=== PATIENT | female | born 1975 | race Caucasian/White ===

== ENCOUNTER 2018-05-10 18:36 | Inpatient (IN) | payer OTHER ==
[~2018-05-10] VITALS: Ht 177.8 cm; Wt 86.2 kg
--- NOTE | 2018-05-10 19:36 | ED GENERAL ADULT ---
See Addendum History of Present Illness General Chief Complaint: ETOH/Drug Related Complaint Stated Complaint: SENT BY [facility] FOR ETOH DETOX Source: patient Exam Limitations: no limitations Vital Signs & Intake/Output Vital Signs & Intake/Output Vital Signs Date Time Temp Pulse Resp B/P B/P Pulse O2 O2 Flow FiO2 Mean Ox Delivery Rate 05/10 1918 98.4 98 18 133/85 96 Room Air Allergies Coded Allergies: No Known Allergies (05/10/18) Triage Note: RECEIVED 43 YO FEMALE SENT BY [facility] FOR DETOX. PT LAST DRANK ETOH 5 PM TODAY, APPROX 500 ML MIXED VODKA. PT REPORTS POSITIVE WITHDRAWL SEIZURES AND TREMORS. Triage Nurses Notes Reviewed? yes Onset: Gradual Duration: months Timing: recent history Severity: severe LMP (ages 10-50): unknown : No Patient currently breastfeeds: No HPI: 05/10/18 43-year-old female presents to the emergency department for medical clearance for [facility]. She says that she drinks alcohol a liter of vodka daily for the past several weeks. She does have a history of alcohol withdrawal seizures. She denies any drug use. She does admit to depression but denies suicidal ideation. Past History Travel History Traveled to [place] past 21 day No Medical History Any Pertinent Medical History? see below for history Neurological: NONE, seizure (etoh withdrawal) EENT: NONE Cardiovascular: NONE Respiratory: NONE Gastrointestinal: NONE Hepatic: NONE Renal: NONE Musculoskeletal: NONE Psychiatric: anxiety, depression Endocrine: NONE Blood Disorders: NONE Cancer(s): NONE Surgical History Surgical History: none (thyloma removal pediatric), appendectomy (thyoma removal pedi) Psychosocial History What is your primary language Finnish Tobacco Use: Never used ETOH Use: heavy use, alcoholic Illicit Drug Use: denies illicit drug use Family History Hx Contributory? No Review of Systems Review of Systems Constitutional: Reports: see HPI. EENTM: Reports: no symptoms. Respiratory: Reports: no symptoms. Cardiovascular: Reports: no symptoms. Denies: chest pain, edema. GI: Reports: no symptoms. Denies: abdominal pain, nausea, vomiting. Genitourinary: Reports: no symptoms. Musculoskeletal: Reports: no symptoms. Skin: Reports: no symptoms. Neurological/Psychological: Reports: anxiety, depressed, emotional problems. Denies: headache, numbness, tremors. Hematologic/Endocrine: Reports: no symptoms. Immunologic/Allergic: Reports: no symptoms. Physical Exam Physical Exam General Appearance: well developed/nourished, no apparent distress, alert, awake , anxious, moderate distress Head: atraumatic, normal appearance Eyes: Bilateral: normal appearance, PERRL, EOMI. Ears, Nose, Throat: normal pharynx, normal ENT inspection, hearing grossly normal Neck: normal inspection, supple, full range of motion Respiratory: normal breath sounds, no respiratory distress Cardiovascular: regular rate/rhythm Peripheral Pulses: 4+ radial (R), 4+ radial (L) Gastrointestinal: soft, non-tender Back: normal inspection, normal range of motion Extremities: normal inspection, normal capillary refill, normal range of motion Neurologic/Psych: no motor/sensory deficits, awake, alert, oriented x 3 Skin: intact, normal color, warm/dry Core Measures ACS in differential dx? No CVA/TIA Diagnosis: No Sepsis Present: No Sepsis Focused Exam Completed? No Progress Differential Diagnoses I considered the following diagnoses in my evaluation of the patient: [Etoh intoxication, impending dt's, withdrawal seizure] Plan of Care: Orders Procedure Date/time Status CIWA 05/10 1905 Active URINE DRUGS OF ABUSE 05/10 1905 Complete ETHANOL 05/10 1905 Complete COMPREHENSIVE METABOLIC PANEL 05/10 1905 Complete CBC WITHOUT DIFFERENTIAL 05/10 1905 Complete Current Medications Sig/Fareed Start time Last Medication Dose Stop Time Status Admin Aripiprazole 5 MG DAILY 05/11 0900 UNVr (Abilify) Sertraline HCl 200 MG DAILY 05/11 0900 UNVr (Zoloft) Gabapentin 600 MG TID 05/10 2145 UNVr (Neurontin) Nicotine 14 MG DAILY 05/10 2045 UNVr (Nicotine Cq) Laboratory Tests 05/10/182039: Urine Opiates Screen < 100, Methadone Screen < 40, Barbiturate Screen < 60, Ur Phencyclidine Scrn < 6.00, Amphetamines Screen < 100, U Benzodiazepines Scrn 188 , Urine Cocaine Screen < 50, Urine Cannabis Screen < 5.00 05/10/181944: Anion Gap 15, Estimated GFR > 60, BUN/Creatinine Ratio 4.0 L, Glucose 112 H, Calcium 8.9, Total Bilirubin 1.6 H, AST 235 H, ALT 112 H, Alkaline Phosphatase 329 H, Total Protein 7.2, Albumin 3.9, Globulin 3.3, Albumin/ Globulin Ratio 1.2, CBC w Diff NO MAN DIFF REQ, RBC 4.37, MCV 103.5 H, MCH 35.2 H, MCHC 34.0, RDW 14.3, MPV 7.6, Gran % 66.7, Lymphocytes % 26.3, Monocytes % 5.7, Eosinophils % 0.8, Basophils % 0.5, Absolute Granulocytes 2.6, Absolute Lymphocytes 1.0 L, Absolute Monocytes 0.2, Absolute Eosinophils 0, Absolute Basophils 0, Serum Alcohol 265.0 Initial ED EKG: none Departure Departure Disposition: STILL A PATIENT Condition: Stable Clinical Impression Primary Impression: EtOH dependence Referrals: Patient Has No Primary Care Dr (PCP/Family) Departure Forms: Customer Survey General Discharge Information Critical Care Note Critical Care Note Critical Care Time: non-applicable
[2018-05-10 19:58] LABS: ABSOLUTE BASOPHIL COUNT 0 /CUMM (0.0-0.2); ABSOLUTE EOSINOPHIL COUNT 0 /CUMM (0.0-0.7); ABSOLUTE GRANULOCYTE CT 2.6 /CUMM (1.4-6.5); ABSOLUTE MONOCYTE COUNT 0.2 /CUMM (0.10-0.60); BASOPHIL % 0.5 % (0.0-2.0); EOSINOPHIL % 0.8 % (0-5); GRANULOCYTE % 66.7 % (42.2-75.2); HEMATOCRIT 45.2 % (37-47); MEAN CORPUSCULAR HGB 35.2 PG (27.0-31.0); MEAN CORPUSCULAR VOLUME 103.5 FL (81.0-99.0); MEAN PLATELET VOLUME 7.6 FL (7.4-10.4); PLATELET COUNT 81 /CUMM (130-400); RBC DISTRIBUTION WIDTH 14.3 % (11.5-14.5); RED BLOOD CELL CT 4.37 /CUMM (4.20-5.40); WHITE BLOOD CELL COUNT 3.9 /CUMM (4.8-10.8)
[2018-05-11] VITALS (8 sets, daily range): BP systolic 121–167; BP diastolic 62–90
--- NOTE | 2018-05-11 05:16 | History & Physical ---
Parvez Bonds MD 05/11/18 0516: General Information and HPI MD Statement: I have seen and personally examined TAO DAY and documented this H&P. The patient is a 43 year old F who presented with a patient stated chief complaint of [alcohol withdrawal]. Source of Information: patient Exam Limitations: no limitations History of Present Illness: Patient is a 43-year-old female with a PMH significant for anxiety, depression, alcohol use disorder with a history of alcohol withdrawal seizures last occurring in August 2012, who was sent in by [facility] for alcohol detoxification. Patient reports her last drink was 05/10/18 at approximately 5 PM. She drinks 1 L of vodka per day which she has done for approximately 1 year , she began drinking heavily again after one of her sons suffered a traumatic injury. Patient currently endorses anxiety and fear of possible seizures, she denies any other symptoms currently other than tremulousness. She denies any audiovisual hallucinations and denies any suicidal or homicidal ideation. Allergies/Medications Allergies: Coded Allergies: No Known Allergies (05/10/18) Past History Travel History Traveled to [place] past 21 day No Medical History Neurological: seizure (etoh withdrawal) EENT: NONE Cardiovascular: NONE Respiratory: NONE Gastrointestinal: NONE Hepatic: NONE Renal: NONE Musculoskeletal: NONE Psychiatric: anxiety, depression Endocrine: NONE Blood Disorders: NONE Cancer(s): NONE Surgical History Surgical History: appendectomy (thymoma removal pedi) Past Family/Social History Family History Relations & Conditions if any MOTHER FH: alcoholism FH: myocardial infarction, Onset: 60+. FATHER FH: alcoholism Psychosocial History Where do you live? Home Who Do You Live With? spouse, child Services at Home: None Primary Language: Mozambican Smoking Status: Current Everyday Smoker (/ ppd for 5 years) ETOH Use: heavy use, alcoholic Illicit Drug Use: denies illicit drug use Functional Ability ADLs Independent: dressing, eating, toileting, bathing. Ambulation: independent IADLs Independent: shopping, housework, finances, food prep, telephone, transportation , medication admin. Review of Systems Review of Systems Constitutional: Denies: chills, fever, weakness. EENTM: Denies: blurred vision, double vision, visual changes. Cardiovascular: Denies: chest pain, palpitations. Respiratory: Denies: cough, short of breath. GI: Denies: abdominal pain, melena, nausea, vomiting. Genitourinary: Denies: dysuria, frequency, hematuria. Musculoskeletal: Reports: no symptoms. Skin: Reports: no symptoms. Exam & Diagnostic Data Last 24 Hrs of Vital Signs/I&O Vital Signs Date Time Temp Pulse Resp B/P B/P Pulse O2 O2 Flow FiO2 Mean Ox Delivery Rate 05/11 0514 98.4 99 20 167/87 96 Room Air 05/11 0415 98.5 93 18 158/89 05/11 0415 98.5 93 18 158/89 97 Room Air 05/11 0347 98.8 05/11 0321 98.8 100 18 159/96 96 Room Air 05/11 0124 99.6 99 18 143/80 96 Room Air 05/10 1918 98.4 98 18 133/85 96 Room Air Intake & Output 05/11 0800 05/11 0000 05/10 1600 Intake Total 0 Output Total Balance 0 Intake, Oral 0 Patient 190 lb Weight Weight Estimated Measurement Method Physical Exam General Appearance Alert, Oriented X3, Cooperative, No Acute Distress Skin Temp/Moisture Exam: Warm/Dry Sepsis Skin Exam (color): Normal for Ethnicity Cardiovascular Regular Rate, Normal S1, Normal S2 Lungs Clear to Auscultation, Normal Air Movement Abdomen Normal Bowel Sounds, Soft, No Tenderness Neurological Normal Speech, Strength at 5/5 X4 Ext, Normal Tone, Sensation Intact, Cranial Nerves 3-12 NL, tremulous Last 24 Hrs of Labs/Vishal: Laboratory Tests 05/10/182039: Urine Opiates Screen < 100, Methadone Screen < 40, Barbiturate Screen < 60, Ur Phencyclidine Scrn < 6.00, Amphetamines Screen < 100, U Benzodiazepines Scrn 188 , Urine Cocaine Screen < 50, Urine Cannabis Screen < 5.00 05/10/181944: Anion Gap 15, Estimated GFR > 60, BUN/Creatinine Ratio 4.0 L, Glucose 112 H, Calcium 8.9, Total Bilirubin 1.6 H, AST 235 H, ALT 112 H, Alkaline Phosphatase 329 H, Total Protein 7.2, Albumin 3.9, Globulin 3.3, Albumin/ Globulin Ratio 1.2, CBC w Diff NO MAN DIFF REQ, RBC 4.37, MCV 103.5 H, MCH 35.2 H, MCHC 34.0, RDW 14.3, MPV 7.6, Gran % 66.7, Lymphocytes % 26.3, Monocytes % 5.7, Eosinophils % 0.8, Basophils % 0.5, Absolute Granulocytes 2.6, Absolute Lymphocytes 1.0 L, Absolute Monocytes 0.2, Absolute Eosinophils 0, Absolute Basophils 0, Serum Alcohol 265.0 Assessment/Plan Assessment: Patient is a 43-year-old female with a PMH significant for anxiety, depression, alcohol use disorder with a history of alcohol withdrawal seizures last occurring in August 2012, who was sent in by [facility] for alcohol detoxification. Patient reports her last drink was 05/10/18 at approximately 5 PM. She drinks 1 L of vodka per day. Vital signs on presentation: T 98.4, P 98, RR 18, BP 133/85, pulse ox 96% on room air Labs: WBC 3.9, H/H 15.4/45.2, MCV 103.5, platelets 81, AST 235, ALT 112, alk phos 329, serum alcohol 265 Problem list #Alcohol use disorder, with alcohol withdrawal and a history of alcohol withdrawal seizures #Transaminitis secondary to alcohol use #Thrombocytopenia #Chronic medical problems including anxiety and depression Plan -Admit to general medicine floor - IV Ativan per CIWA score -Scheduled Ativan p.o. 2 mg every 8 hours -Social work consult for coordination with discharge to [facility] when stable -Repeat CBC in a.m. -Continue home medications including gabapentin, aripiprazole, sertraline -Smoking cessation counseling, nicotine patch Diet: Regular diet DVT prophylaxis: ALPS, will hold pharmacologic DVT ppx given thrombocytopenia CODE STATUS: Full code As Ranked By This Provider Problem List: 1. EtOH dependence 2. Alcohol withdrawal Core Measures/Misc (08/07) Acute Coronary Syndrome ACS Diagnosis: No Congestive Heart Failure Congestive Heart Failure Diagnosis No Cerebrovascular Accident CVA/TIA Diagnosis: No VTE (View Protocol) VTE Risk Factors Age>40 No Mechanical VTE Prophylaxis d/t N/A MechProphylax Ordered No VTE Pharm Prophylaxis d/t Platelets below ref range Sepsis (View protocol) Sepsis Present: No If YES complete Sepsis Event Note If YES complete Sepsis Event Note Leticia Almanza 05/11/18 0529: Core Measures/Misc (08/07) Sepsis (View protocol) If YES complete Sepsis Event Note If YES complete Sepsis Event Note Resident Review Statement Resident Statement: discussed with director internal communications, agreed with director internal communications Other Findings: Patient is 43 year old female with PMH of mutiple etoh detox admissions at [facility], hx of etoh withdrawal seizures in 2011 and anxiety came with a request of etoh detox. She states that she has been drinking 1 liter of vodka since past May 2017. The accident of her son prompted her to start drinking. She denies any suicidal or homicidial ideations and her last drink was on 05/10 at 5 pm. Patient follows up with her own psychiatrist who has prescribed her sertraline and aripiprazole. ROS negative. Labs and vitals as above. Plan: Will admit the patient on General medicine floor, and start 2mg ativan PO RTC and 1 mg q1 prn per CIWA protocol, Neuro checks q 4. Will continue her gabapentin, sertraline and aripiprazole. Will just monitor blood pressure at this point. for transaminities, will recheck lfts in am and obtain RUQ usg. Patient does not report of any abdominal pain at this point. will monitor closely. Patient has thrombocytopenia with a platelet count of 81, will continue to monitor. dvt ppx ALPS due to thrombocytopenia patient is full code. Jose David Khan MD 05/11/18 2335: General Information and HPI Allergies/Medications Home Med list Aripiprazole 5 MG TABLET 1 TAB PO DAILY MENTAL HEALTH (Reported) Gabapentin 600 MG TABLET 2 TAB PO TID MENTAL HEALTH (Reported) Multivitamin (Daily Value) 1 EACH TABLET 1 TAB PO DAILY VITAMIN SUPPORT ( Reported) Sertraline HCl 100 MG TABLET 2 TAB PO DAILY MENTAL HEALTH (Reported) Core Measures/Misc (08/07) Sepsis (View protocol) If YES complete Sepsis Event Note If YES complete Sepsis Event Note Attending MD Review Statement Attending Statement Attending MD Statement: examined this patient, discuss w/resident/PA/DETASSELING CREW SUPERVISOR, agreed w/resident/PA/DETASSELING CREW SUPERVISOR, reviewed EMR data (avail) Attending Assessment/Plan: 43F PMH EtOH abuse with history of withdrawal seizure, was set to go to [facility] from ER but started withdrawing, CIWA 11 in ER, some agitation, given Ativan, will require treatment for withdrawal. Ativan taper and PRN, trend LFTs which were elevated on arrival, check coags, monitor electrolytes, DVT PPx.
[2018-05-11 05:56] LABS: ABSOLUTE BASOPHIL COUNT 0 /CUMM (0.0-0.2); ABSOLUTE EOSINOPHIL COUNT 0 /CUMM (0.0-0.7); ABSOLUTE GRANULOCYTE CT 1.4 /CUMM (1.4-6.5); ABSOLUTE LYMPH COUNT 0.5 /CUMM (1.2-3.4); ABSOLUTE MONOCYTE COUNT 0.2 /CUMM (0.10-0.60); BASOPHIL % 0.7 % (0.0-2.0); EOSINOPHIL % 0.8 % (0-5); GRANULOCYTE % 65.9 % (42.2-75.2); MEAN CORPUSCULAR HGB 35.7 PG (27.0-31.0); MEAN CORPUSCULAR HGB CONC 34.7 G/DL (33.0-37.0); MEAN CORPUSCULAR VOLUME 102.7 FL (81.0-99.0); MEAN PLATELET VOLUME 7.6 FL (7.4-10.4); RBC DISTRIBUTION WIDTH 13.9 % (11.5-14.5); RED BLOOD CELL CT 3.63 /CUMM (4.20-5.40)
[2018-05-11 06:07] LABS: HEMATOCRIT 37.3 % (37-47)
[2018-05-11 06:12] LABS: WHITE BLOOD CELL COUNT 2.8 /CUMM (4.8-10.8)
[2018-05-11 06:20] LABS: PLATELET COUNT 47 /CUMM (130-400)
[2018-05-11] MEDS ORDERED: SERTRALINE HCL100 MG PO (08:22)
[2018-05-11] MEDS ORDERED: GABAPENTIN600 M1 PO (08:22)
[2018-05-11] MEDS ORDERED: ARIPIPRAZOLE5 M1 PO (08:22)
[2018-05-11] MEDS ORDERED: DAILY VALUE1 EACH PO (08:23)
[2018-05-11 13:17] LABS: PT 12.9 SEC (9.4-12.5); PTT 31 SEC (25-37)
--- NOTE | 2018-05-11 13:30 | PN- Att Addend ---
Attending Addendum Attending Brief Note Patient seen and examined. Lying on stretcher not in acute distress. Denies nausea vomiting. Denies abdominal pain. She reports seeking admission to [facility] program. She was told she required hospitalization prior to admission there. She does carry a history of alcohol-related seizures. CIWA score has been elevated in the emergency room when she has been receiving as needed doses of Ativan. Vital Signs Date Time Temp Pulse Resp B/P B/P Pulse O2 O2 Flow FiO2 Mean Ox Delivery Rate 05/11 1230 98.2 94 18 129/84 05/11 1212 98.2 94 18 129/73 98 Room Air 05/11 1030 98.6 96 16 128/81 96 Room Air 05/11 1015 96.0 96 20 121/81 05/11 0745 98.4 93 18 124/62 05/11 0743 98.4 93 18 124/62 96 Room Air 05/11 0515 98.4 99 20 167/87 05/11 0514 98.4 99 20 167/87 96 Room Air 05/11 0415 98.5 93 18 158/89 05/11 0415 98.5 93 18 158/89 97 Room Air 05/11 0347 98.8 05/11 0321 98.8 100 18 159/96 96 Room Air 05/11 0124 99.6 99 18 143/80 96 Room Air 05/10 1918 98.4 98 18 133/85 96 Room Air General appearance: Well-developed and not in any acute distress. HEENT: Anicteric, no pallor, pupils equal and reactive. Neck: Supple with no jugular venous distention. Heart: S1-S2 regular with no audible murmur. Lungs: Adequate and symmetric air entry bilaterally with no added sounds. Abdomen: Nondistended with normal bowel sounds. Soft, nontender with no palpable masses. Extremities: No pedal edema. No cyanosis. Skin: Intact Laboratory Tests 05/11/18 1254: PT 12.9 H, INR 1.18, APTT 31 05/11/18 0550: Anion Gap 11, Estimated GFR > 60, BUN/Creatinine Ratio 4.0 L, Direct Bilirubin 1.1 H, CBC w Diff NO MAN DIFF REQ, RBC 3.63 L, MCV 102.7 H, MCH 35.7 H, MCHC 34.7, RDW 13.9, MPV 7.6, Gran % 65.9, Lymphocytes % 24.6, Monocytes % 8.0, Eosinophils % 0.8, Basophils % 0.7, Absolute Granulocytes 1.4, Absolute Lymphocytes 0.5 L, Absolute Monocytes 0.2, Absolute Eosinophils 0, Absolute Basophils 0 05/10/182039: Urine Opiates Screen < 100, Methadone Screen < 40, Barbiturate Screen < 60, Ur Phencyclidine Scrn < 6.00, Amphetamines Screen < 100, U Benzodiazepines Scrn 188 , Urine Cocaine Screen < 50, Urine Cannabis Screen < 5.00 05/10/181944: Anion Gap 15, Estimated GFR > 60, BUN/Creatinine Ratio 4.0 L, Glucose 112 H, Calcium 8.9, Total Bilirubin 1.6 H, AST 235 H, ALT 112 H, Alkaline Phosphatase 329 H, Total Protein 7.2, Albumin 3.9, Globulin 3.3, Albumin/ Globulin Ratio 1.2, CBC w Diff NO MAN DIFF REQ, RBC 4.37, MCV 103.5 H, MCH 35.2 H, MCHC 34.0, RDW 14.3, MPV 7.6, Gran % 66.7, Lymphocytes % 26.3, Monocytes % 5.7, Eosinophils % 0.8, Basophils % 0.5, Absolute Granulocytes 2.6, Absolute Lymphocytes 1.0 L, Absolute Monocytes 0.2, Absolute Eosinophils 0, Absolute Basophils 0, Serum Alcohol 265.0 Problems: 1. Alcohol withdrawal syndrome 2. Cirrhosis 3. Leukopenia, macrocytosis and thrombocytopenia; secondary to above 4. Transaminitis cholestatic pattern Plan: -Since arriving in the emergency room her CIWA score has been persistently documented high with values of 12, 10, 15, 11. She has occasional low values of 4 and 5. Would recommend administering standing dose of Ativan more frequently. Administer Ativan 2 mg orally every 4 hours for now. Continue with as needed Ativan per elevated CIWA score. Will wean down based on response to therapy. -Follow-up right upper quadrant sonogram. -Thrombocytopenia precautions. -Follow-up with the social work service regarding transferring to [facility] once her benzodiazepine therapy has been weaned down appropriately. -Check folic acid and B12 levels.
--- NOTE | 2018-05-11 14:44 | ULTRASOUND REPORT ---
EXAMINATION: US ABDOMEN LIMITED CLINICAL INFORMATION: Right upper quadrant ultrasound for cholecystitis. Transaminitis.. COMPARISON: None TECHNIQUE: Real-time imaging of the right upper quadrant abdominal viscera. FINDINGS: PANCREAS: Portions of the pancreatic body are visualized and appear unremarkable. Remainder of the pancreas is obscured by overlying bowel gas. LIVER: The liver is enlarged, measuring 20.2 cm longitudinally. Diffusely increased echogenicity is seen, consistent with hepatic steatosis. No focal cystic or solid mass or intrahepatic ductal dilatation is seen. With color Doppler imaging, normal hepatopetal flow is seen within the main portal vein. GALLBLADDER: Normal. The gallbladder is physiologically distended without evidence of stones, sludge, polyps, wall thickening or pericholecystic fluid. COMMON BILE DUCT: Normal in caliber measuring 0.4 cm in diameter. RIGHT KIDNEY: Normal. No hydronephrosis. No renal calculi or focal parenchymal lesions. The kidney measures 12.3 cm in maximum dimension. FREE FLUID: None. IMPRESSION: 1. Enlarged liver with diffusely increased echogenicity, consistent with hepatic steatosis. 2. No focal liver mass. 3. Gallbladder normal with no evidence of cholecystitis or biliary obstruction. 4. Incomplete view of the pancreas.
[2018-05-12] VITALS (10 sets, daily range): BP systolic 108–122; BP diastolic 60–80
--- NOTE | 2018-05-12 07:07 | PN- Housestaff ---
See Addendum Subjective Follow-up For: alcohol use disorder alcohol dependence and withdrawal Subjective: patient complained of a headache that was relieved by tylenol and feels like her withdrawal symptoms are overall much better and well controlled, but she "knows when her next dose is due" tmax 100.3 overnight patient complained of some dysuria for the past day Review of Systems Constitutional: Reports: see HPI. Objective Last 24 Hrs of Vital Signs/I&O Vital Signs Date Time Temp Pulse Resp B/P B/P Pulse O2 O2 Flow FiO2 Mean Ox Delivery Rate 05/12 0726 97.5 88 20 112/68 96 Room Air 05/12 0400 100.3 96 20 110/60 05/12 0200 100.3 96 20 110/60 05/12 0200 100.3 96 20 110/60 97 Room Air 05/12 0000 98.3 93 20 122/70 05/11 2155 98.3 93 20 122/70 98 Room Air 05/11 1824 98.1 82 20 130/80 99 Room Air 05/11 1448 98.0 98 20 145/90 100 Room Air 05/11 1230 98.2 94 18 129/84 05/11 1212 98.2 94 18 129/73 98 Room Air 05/11 1030 98.6 96 16 128/81 96 Room Air 05/11 1015 96.0 96 20 121/81 Intake & Output 05/12 1600 05/12 0800 05/12 0000 Intake Total 240 700 Output Total Balance 240 700 Intake, Oral 240 700 Physical Exam General Appearance: Alert, Oriented X3, Cooperative, No Acute Distress Cardiovascular: Regular Rate, Normal S1, Normal S2, No Murmurs Lungs: Clear to Auscultation, Normal Air Movement Abdomen: Normal Bowel Sounds, Soft, No Tenderness, No Masses Extremities: No Clubbing, No Cyanosis, No Edema, Normal Pulses Current Medications: Current Medications Sig/Fareed Start time Last Medication Dose Route Stop Time Status Admin Acetaminophen 500 MG Q6P PRN 05/11 1045 AC 05/12 PO 0219 Aripiprazole 5 MG DAILY 05/11 1456 DC PO Aripiprazole 5 MG DAILY 05/11 0900 AC 05/11 PO 0855 Folic Acid 1 MG DAILY 05/11 0900 AC 05/11 PO 0855 Gabapentin 1,200 MG BID 05/11 1455 AC 05/11 PO 2123 Gabapentin 0 .STK-MED ONE 05/11 1332 DC PO Gabapentin 600 MG TID 05/10 2145 DC 05/11 PO 1328 Lorazepam 2 MG Q6 05/12 1200 AC PO Lorazepam 2 MG Q4 05/11 1800 DC 05/12 PO 0535 Lorazepam 0 .STK-MED ONE 05/11 1332 DC PO Lorazepam 0 .STK-MED ONE 05/11 1055 DC .ROUTE Lorazepam 2 MG Q8 05/11 0900 DC 05/11 PO 1328 Lorazepam 0 .STK-MED ONE 05/11 0842 DC PO Lorazepam 0 Q1P PRN 05/11 0500 AC 05/11 IV 1916 Multivitamins 1 TAB DAILY 05/11 0900 AC 05/11 PO 0855 Nicotine 14 MG DAILY 05/10 2045 AC 05/11 TOP 0855 Sertraline HCl 200 MG DAILY 05/11 1455 AC PO Sertraline HCl 200 MG DAILY 05/11 0900 DC 05/11 PO 0855 Thiamine HCl 50 MG DAILY 05/11 0900 AC 05/11 PO 0855 Last 24 Hrs of Lab/Vishal Results Last 24 Hrs of Labs/Mics: Laboratory Tests 05/12/18 0740: Sodium Pending, Potassium Pending, Chloride Pending, Carbon Dioxide Pending, Anion Gap Pending, BUN Pending, Creatinine Pending, BUN/Creatinine Ratio Pending , Phosphorus Pending, Magnesium Pending, Total Bilirubin Pending, Direct Bilirubin Pending, AST Pending, ALT Pending, Alkaline Phosphatase Pending, Total Protein Pending, Albumin Pending, CBC w Diff Pending, WBC Pending, RBC Pending, Hgb Pending, Hct Pending, MCV Pending, MCH Pending, MCHC Pending, RDW Pending, Plt Count Pending, MPV Pending 05/11/18 1254: PT 12.9 H, INR 1.18, APTT 31 Assessment/Plan Assessment: 43 year old female with a PMH significant for anxiety, depression, alcohol use disorder, withdrawal seizures last 08/2012 sent in by [facility] for alcohol detox. Last drink was 05/10/18 5 PM. EtOH dependence and withdrawal: Ativan 2mg q4h currently, decrease to q6h Ativan prn per [facility] protocol, 0-7 in the last 24 hours Long history of alcohol use disorder, relapse one year after ago after son's traumatic injury Continue multivitamin, thiamine, folate Abdominal ultrasound showed hepatic steatosis, no mass, normal gall bladder Thrombocytopenia and leukopenia likely secondary to EtOH, trend CBC Repleted magnesium and potassium Anxiety/depression: Continue abilify, zoloft, and gabapentin Low grade fever overnight: 100.3, given tylenol Check urinalysis and chest x-ray for temperature of 100.3 and leukopenia Continue nicotine patch Macrocytosis likely from EtOH, with normal range folate and B12, continue vitamin supplementation Regular diet DVT ppx-ALPS only-thrombocytopenia Full code Problem List: 1. EtOH dependence 2. Alcohol withdrawal Pain Ratin Pain Location: headache Pain Goal: Pain 4 or less Pain Plan: tylenol Tomorrow's Labs & Rationales: bep, cbc
[2018-05-12 08:10] LABS: ABSOLUTE BASOPHIL COUNT 0 /CUMM (0.0-0.2); ABSOLUTE EOSINOPHIL COUNT 0 /CUMM (0.0-0.7); ABSOLUTE GRANULOCYTE CT 1.4 /CUMM (1.4-6.5); ABSOLUTE LYMPH COUNT 0.5 /CUMM (1.2-3.4); ABSOLUTE MONOCYTE COUNT 0.1 /CUMM (0.10-0.60); BASOPHIL % 0.8 % (0.0-2.0); EOSINOPHIL % 1.3 % (0-5); GRANULOCYTE % 70.3 % (42.2-75.2); MEAN CORPUSCULAR HGB 35.8 PG (27.0-31.0); MEAN CORPUSCULAR HGB CONC 34.7 G/DL (33.0-37.0); MEAN CORPUSCULAR VOLUME 103.4 FL (81.0-99.0); MEAN PLATELET VOLUME 8.4 FL (7.4-10.4); RBC DISTRIBUTION WIDTH 14.1 % (11.5-14.5); RED BLOOD CELL CT 3.77 /CUMM (4.20-5.40); WHITE BLOOD CELL COUNT 2.1 /CUMM (4.8-10.8)
[2018-05-12 09:42] LABS: PLATELET COUNT 37 /CUMM (130-400)
--- NOTE | 2018-05-12 12:45 | RADIOLOGY REPORT ---
EXAMINATION: XR PORTABLE CHEST CLINICAL INFORMATION: Cough. Fever. COMPARISON: None TECHNIQUE: Portable frontal view of the chest was obtained. FINDINGS: The cardiomediastinal silhouette is within normal limits in size. Lungs bilaterally are symmetrically expanded. Linear subsegmental atelectasis is seen in the left lung base. Slight thickening of the central airways is seen with perihilar reticular prominence. No focal consolidation, effusion or pneumothorax is seen. Bony structures are unremarkable. IMPRESSION: 1. Findings are suggestive of reactive airways disease or bronchitis. No focal pneumonia. 2. Mild left basilar subsegmental atelectasis.
[2018-05-13] VITALS (10 sets, daily range): BP systolic 108–128; BP diastolic 65–75
--- NOTE | 2018-05-13 07:37 | PN- Housestaff ---
Jodi Schreiber 05/13/18 0724: Subjective Follow-up For: -alcohol detox Subjective: I have seen and examined the patient today morning, seems to be stable, does not offer any new complaint. Review of Systems Constitutional: Reports: see HPI. Objective Last 24 Hrs of Vital Signs/I&O Vital Signs Date Time Temp Pulse Resp B/P B/P Pulse O2 O2 Flow FiO2 Mean Ox Delivery Rate 05/13 0556 97.8 96 20 110/70 96 Room Air 05/13 0200 98.4 87 20 114/70 97 Room Air 05/12 2152 98.3 80 20 122/70 96 Room Air 05/12 1800 98.6 86 20 110/60 97 Room Air 05/12 1457 98.7 85 20 108/60 95 05/12 1400 98.7 85 20 108/60 05/12 1024 100.0 89 20 120/80 97 05/12 1000 100.0 89 20 120/80 05/12 0726 97.5 88 20 112/68 96 Room Air Intake & Output 05/13 0800 05/13 0000 05/12 1600 Intake Total 664 968 6273 Output Total 350 Balance 342 671 2323 Intake, Oral 006 604 6346 Output, Urine 350 Physical Exam General Appearance: Alert, Oriented X3 Skin: No Rashes, No Breakdown, No Significant Lesion HEENT: Atraumatic, PERRLA, EOMI Neck: Supple, No JVD Cardiovascular: Regular Rate, Normal S1, Normal S2, No Murmurs Lungs: Clear to Auscultation, Normal Air Movement Abdomen: Normal Bowel Sounds, Soft, No Tenderness Extremities: No Clubbing, No Cyanosis, No Edema, Normal Pulses Current Medications: Current Medications Sig/Fareed Start time Last Medication Dose Route Stop Time Status Admin Acetaminophen 500 MG Q6P PRN 05/11 1045 AC 05/12 PO 1744 Albuterol Sulfate 2 PUF BID 05/12 2100 AC INH Aripiprazole 5 MG DAILY 05/11 09 AC 05/12 PO 0837 Folic Acid 1 MG DAILY 05/11 0900 AC 05/12 PO 0837 Gabapentin 1,200 MG BID 05/11 1455 AC 05/12 PO 2026 Lorazepam 2 MG Q6 05/12 1200 AC 05/13 PO 0558 Lorazepam 2 MG Q4 05/11 1800 DC 05/12 PO 0535 Lorazepam 0 Q1P PRN 05/11 0500 AC 05/12 IV 2037 Magnesium Oxide 400 MG ONE ONE 05/12 1400 DC 05/12 PO 05/12 1401 1356 Magnesium Oxide 800 MG ONE ONE 05/12 0945 DC 05/12 PO 05/12 0946 1132 Multivitamins 1 TAB DAILY 05/11 0900 AC 05/12 PO 0837 Nicotine 14 MG DAILY 05/10 2045 05/12 TOP 0837 Patient Medication 1 ED ONE ONE 05/12 1030 DC Teaching ED 05/12 1031 Potassium Chloride 40 MEQ ONCE ONE 05/12 0945 DC 05/12 PO 05/12 0946 1133 Sertraline HCl 200 MG DAILY 05/11 1455 AC 05/12 PO 0836 Thiamine HCl 50 MG DAILY 05/11 0900 AC 05/12 PO 0837 Last 24 Hrs of Lab/Vishal Results Last 24 Hrs of Labs/Mics: Laboratory Tests 05/12/18 1144: Urinalysis LIGHT H, Urine Color YEL, Urine Clarity HAZY H, Urine pH 7.5, Ur Specific [place] 1.015, Urine Protein NEG, Urine Ketones NEG, Urine Nitrite NEG, Urine Bilirubin POS@ICTO H, Urine Urobilinogen 2.0 H, Ur Leukocyte Esterase SMALL H, Ur Microscopic SEDIMENT EXAMINED, Urine RBC 3-5, Urine WBC 5-10 H, Ur Epithelial Cells MOD H, Urine Bacteria MOD H, Urine Hemoglobin TRACE-INTACT, Urine Glucose NEG 05/12/18 0740: Anion Gap 8, Estimated GFR > 60, BUN/Creatinine Ratio 8.0, Phosphorus 3.8, Magnesium 1.3 L, Total Bilirubin 2.9 H, Direct Bilirubin 2.0 H, AST 189 H, ALT 87 H, Alkaline Phosphatase 287 H, Total Protein 6.0 L, Albumin 3.0 L, CBC w Diff NO MAN DIFF REQ, RBC 3.77 L, MCV 103.4 H, MCH 35.8 H, MCHC 34.7, RDW 14.1, MPV 8.4, Gran % 70.3, Lymphocytes % 22.0, Monocytes % 5.6, Eosinophils % 1.3, Basophils % 0.8, Absolute Granulocytes 1.4, Absolute Lymphocytes 0.5 L, Absolute Monocytes 0.1, Absolute Eosinophils 0, Absolute Basophils 0 Microbiology 05/12 1310 BLOOD: Blood Culture - RECD 05/12 1300 BLOOD: Blood Culture - RECD 05/12 1144 URINE ROUT: Urine Culture - RECD Lines/Diet/Fluids Restraints: none Assessment/Plan Assessment: Ms. Malik is a 43-year-old female with past medical history of anxiety, depression, alcohol use disorder, withdrawal seizure came in to [facility] for alcohol detoxification. Problem #1 alcohol dependence with withdrawal * Taper Ativan from 2 mg every 6-2 mg every 12. * CIWA overnight 3, 0, 0, 0 * Continue multivitamin, thiamine, folate. * Anticipated discharge tomorrow, patient wants to go back to [employer] tmrw, social work on board. * Abdominal ultrasound showed hepatic steatosis possibly secondary to alcoholism. * Continue to monitor BEP, repeat magnesium and potassium as indicated Problem #2 anxiety/depression * Continue Abilify, Zoloft, gabapentin Problem #3 low-grade fever 05/12. * No more fever spikes. * Chest x-ray did not show any findings of focal pneumonia. * UA showed 5-10 WBCs with mild leukocyte esterase, not very impressive for infection. * No growth on cultures, will continue to monitor. Problem #4 smoking cessation. * Continue nicotine patch. Regular diet. DVT prophylaxis with Aide. FC Problem List: 1. EtOH dependence 2. Alcohol withdrawal Pain Ratin Pain Location: .. Pain Goal: Remain pain free Pain Plan: .. Tomorrow's Labs & Rationales: .. Brandi SOUSA,Melquiades 05/13/18 1043: Attending MD Review Statement Attending Statement Attending MD Statement: examined this patient, discuss w/resident/PA/SENIOR ADMINISTRATIVE ASSOCIATE, agreed w/resident/PA/SENIOR ADMINISTRATIVE ASSOCIATE, reviewed EMR data (avail), discussed with nursing, discussed with case mgmt, amended to note Attending Assessment/Plan: Patient seen and examined. Resting comfortably not in any acute distress. CIWA score was not significantly elevated yesterday. Her score has been 0 so far today. He is not in any acute distress. She is alert and oriented 3. She has been afebrile. She reports her dysuria has resolved. Denies nausea vomiting or abdominal discomfort. Urine cultures currently growing gram-negative rods. Right upper quadrant sonogram showed hepatomegaly. No evidence of cholecystitis or biliary infection. Her leukopenia and thrombocytopenia are stable Recommendations: -Ativan has been decreased to 2 mg every 12 hours today. She has received 4 mg of Ativan so far earlier on today. Continue current dose of Ativan tomorrow. -If she remains clinically stable she may be discharged to [facility] tomorrow. -Urine culture is growing gram-negative rods. She did complain of dysuria earlier but this has improved. She also had low-grade fever earlier. Recommend treating patient with ciprofloxacin 500 mg orally twice daily for 5 days. -No need to repeat serum chemistry or CBC tomorrow
[2018-05-13 08:35] LABS: ABSOLUTE BASOPHIL COUNT 0 /CUMM (0.0-0.2); ABSOLUTE EOSINOPHIL COUNT 0 /CUMM (0.0-0.7); ABSOLUTE GRANULOCYTE CT 1.6 /CUMM (1.4-6.5); ABSOLUTE LYMPH COUNT 0.4 /CUMM (1.2-3.4); ABSOLUTE MONOCYTE COUNT 0.1 /CUMM (0.10-0.60); BASOPHIL % 0 % (0.0-2.0); EOSINOPHIL % 1.4 % (0-5); GRANULOCYTE % 72.7 % (42.2-75.2); HEMATOCRIT 41.5 % (37-47); MEAN CORPUSCULAR HGB 35.3 PG (27.0-31.0); MEAN CORPUSCULAR HGB CONC 34.2 G/DL (33.0-37.0); MEAN CORPUSCULAR VOLUME 103.3 FL (81.0-99.0); MEAN PLATELET VOLUME 8.4 FL (7.4-10.4); RBC DISTRIBUTION WIDTH 13.6 % (11.5-14.5); RED BLOOD CELL CT 4.02 /CUMM (4.20-5.40); WHITE BLOOD CELL COUNT 2.2 /CUMM (4.8-10.8)
[2018-05-13 10:40] LABS: PLATELET COUNT 41 /CUMM (130-400)
[2018-05-14] VITALS (8 sets, daily range): BP systolic 100–116; BP diastolic 60–84
--- NOTE | 2018-05-14 08:47 | PN- Housestaff ---
See Addendum Subjective Follow-up For: alcohol use disorder alcohol dependence and withdrawal Subjective: patient today, complained of some body aches patient does report that in the past she had detoxed at home and on arrival to [facility] was told she had rhabdomyolysis but denied any known seizures at that time afebrile overnight, on cipro for uti Review of Systems Constitutional: Reports: see HPI. Objective Last 24 Hrs of Vital Signs/I&O Vital Signs Date Time Temp Pulse Resp B/P B/P Pulse O2 O2 Flow FiO2 Mean Ox Delivery Rate 05/14 0900 97.0 93 18 112/80 95 Room Air 05/14 0547 98.4 94 20 100/60 94 Room Air 05/14 0158 98.7 97 20 110/60 94 Room Air 05/13 2219 98.6 96 18 128/70 96 05/13 1800 98.4 101 18 108/68 94 Room Air 05/13 1405 97.5 94 20 110/75 97 Room Air 05/13 1400 97.8 96 20 110/70 05/13 1200 97.8 96 20 110/70 05/13 1107 97.5 92 20 110/65 95 Room Air 05/13 1000 97.8 96 20 110/70 Intake & Output 05/14 1600 05/14 0800 05/14 0000 Intake Total 250 700 Output Total Balance 250 700 Intake, Oral 250 700 Physical Exam General Appearance: Alert, Oriented X3, Cooperative, minimal tremor Cardiovascular: Regular Rate, Normal S1, Normal S2, No Murmurs Lungs: Clear to Auscultation, Normal Air Movement Abdomen: Normal Bowel Sounds, Soft, No Tenderness, No Masses Extremities: No Clubbing, No Cyanosis, No Edema, Normal Pulses Current Medications: Current Medications Sig/Fareed Start time Last Medication Dose Route Stop Time Status Admin Acetaminophen 650 MG .STK-MED ONE 05/13 1541 DC PO 05/13 1542 Acetaminophen 500 MG Q6P PRN 05/11 1045 AC 05/14 PO 0043 Albuterol Sulfate 2 PUF BID 05/12 2100 AC INH Aripiprazole 5 MG DAILY 05/11 0900 AC 05/13 PO 0858 Ciprofloxacin 500 MG BID 05/13 1230 AC 05/13 PO 05/17 1229 2029 Folic Acid 1 MG DAILY 05/11 09 AC 05/13 PO 0858 Gabapentin 1,200 MG BID 05/11 1455 AC 05/13 PO 2028 Lorazepam 1 MG Q12 05/14 2100 UNVr PO Lorazepam 2 MG Q12 05/13 0900 DC 05/13 PO 2028 Lorazepam 0 Q1P PRN 05/11 0500 AC 05/13 IV 1807 Magnesium Oxide 400 MG DAILY 05/15 09 UNVr PO Magnesium Oxide 800 MG ONE ONE 05/14 0930 UNVr PO 05/14 0931 Magnesium Oxide 800 MG ONE ONE 05/14 930 UNVr PO 05/14 0931 Multivitamins 1 TAB DAILY 05/11 09 AC 05/13 PO 0859 Nicotine 14 MG DAILY 05/10 2045 AC 05/13 TOP 0858 Sertraline HCl 200 MG DAILY 05/11 1455 AC 05/13 PO 0859 Thiamine HCl 50 MG DAILY 05/11 09 AC 05/13 PO 0859 Assessment/Plan Assessment: 43 year old female with a PMH significant for anxiety, depression, alcohol use disorder, withdrawal seizures last 08/2012 sent in by [facility] for alcohol detox. Last drink was 05/10/18 5 PM. EtOH dependence and withdrawal: Ativan 2mg q12h currently, decrease to 1mg q12 Ativan prn per CIWA protocol, 0-4, with one documented CIWA of 10 in the last 24 hours Long history of alcohol use disorder, relapse one year after ago after son's traumatic injury Continue multivitamin, thiamine, folate Abdominal ultrasound negative for biliary disease, hepatic steatosis Thrombocytopenia and leukopenia likely secondary to EtOH, trend CBC Repleted magnesium Check BEP with magnesium, LFTs and CK for h/o of rhabdomyolysis and body aches Anxiety/depression: Continue abilify, zoloft, and gabapentin Low grade fever with dysuria: Afebrile On ciprofloxacin for urinary tract infection, culture 80,000 colonies GNR, speciation pending Will give 3 days of antibiotics Continue nicotine patch Regular diet DVT ppx-ALPS only-thrombocytopenia Full code Plan to discharge to [facility] tmrw after completing benzodiazepine taper Problem List: 1. EtOH dependence 2. Alcohol withdrawal Pain Ratin Pain Location: whole body myalgia Pain Goal: Pain 4 or less Pain Plan: prn Tomorrow's Labs & Rationales: bep, lft, mag
--- NOTE | 2018-05-14 14:06 | PN- Student ---
Subjective Subjective: Student H&P Source: patient and records review Reliability: good HPI: Helena Cummings is a 43 YOF with a PMH significant for anxiety, depression, and ethanol detoxes in 2011 and 2013 who was sent in to the ER by Jose Angel for ethanol detox. She states that she has been drinking 1L of vodka per day for the past year. Her last period of sobriety ended when her son suffered a cervical neck fracture and experienced a difficult recovery. Her last drink was on at 5pm. In the ER, patient was experiencing anxiety and tremulousness, and she stated that she was afraid of having a seizure like she experienced during her 2012 detox. She denied any hallucinations or suicidal ideation. Hospital Course: Mrs. Cummings was initially treated with IV ativan per CIWA protocol and scheduled ativan of 2mg Q8h. Her Ativan has since been tapered to 2mg Q12h. Her most recent CIWA scores have ranged between 0-4 with some points scored for anxiety, which may be partly her baseline. Initial lab values revealed a transaminitis, macrocytosis, and thrombocytopenia. Over the next days she also developed a leukopenia. Treatment included repletion of folate, B vitamins, and magnesium. She was also found to have a UTI, which was treated with Ciprofloxacin. On the she developed a cough and fever. X-ray showed evidence of reactive airway disease, which was treated with albuterol. PMH: Anxiety, Depression, Thymoma (age 1), Tonsillectomy (age 8) She has never received a blood transfusion She has received all of her childhood vaccinations, as well as HepA and HepB vaccines. She regularly saw Dr. Kevin Gutierrez in [place] until 1 year ago. She does not currently have a PCP, but would like to establish herself with one. Home Medications: Aripiprazole Gabapentin Sertraline HCl FMH: Father - alcoholism Mother - alcoholism, heart disease (unknown etiology, > age 60) SH: Mrs. Cummings lives at home with her and three sons - ages 18, 16, and 16. 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 She does not currently work, but expresses interest in returning to her career after her children are out of the house. Her works in [employer] for [employer]. Her eldest son is about to enter college and wishes to study [employer] engineering. Her twin sons are in highschool and doing well. [place], but has an extensive travel history. Starting as a child, she took multiple trips to [place] with her father, who was an gis consultant there. She has also traveled [place], [place], and most recently last year to [place] and [place]. She has been an on again off again alcoholic since 2011, with periods of remission lasting up to three years. She has also been an active smoker for the past 5 years at a rate of 1/4 ppd. She has never used illicit drugs, IV or otherwise. She is currently sexually active with her , and both of them are monogamous. She denies ever feeling unsafe at home. Objective Objective: On physical exam, the patient is sitting comfortably in bed; she is alert and oriented speaking in full sentances. Her affect is pleasant and cooperative. Her skin is PWD. Pupils are equal. No tremor present. Urine cultures showed gram negative rods. Blood cultures had no growth after two days. Utox negative except for alcohol on admission. Vital Signs Date Time Temp Pulse Resp B/P B/P Pulse O2 O2 Flow FiO2 Mean Ox Delivery Rate 05/14 0900 97.0 93 18 112/80 95 Room Air 05/14 0547 98.4 94 20 100/60 94 Room Air 05/14 0158 98.7 97 20 110/60 94 Room Air 05/13 2219 98.6 96 18 128/70 96 05/13 1800 98.4 101 18 108/68 94 Room Air 05/13 1405 97.5 94 20 110/75 97 Room Air 05/13 1400 97.8 96 20 110/70 Laboratory Tests 05/13 05/12 0700 1144 Chemistry Sodium (137 - 145 mmol/L) 136 L Potassium (3.5 - 5.1 mmol/L) 4.1 Chloride (98 - 107 mmol/L) 100 Carbon Dioxide (22 - 30 mmol/L) 27 Anion Gap (5 - 16) 9 BUN (7 - 17 mg/dL) 4 L Creatinine (0.5 - 1.0 mg/dL) 0.4 L Estimated GFR (>60 ml/min) > 60 BUN/Creatinine Ratio (7 - 25 %) 10.0 Magnesium (1.6 - 2.3 mg/dL) 1.5 L Total Bilirubin (0.2 - 1.3 mg/dL) 3.3 H Direct Bilirubin (< 0.4 mg/dL) 2.3 H AST (14 - 36 U/L) 144 H ALT (9 - 52 U/L) 84 H Alkaline Phosphatase (<127 U/L) 276 H Total Protein (6.3 - 8.2 g/dL) 6.2 L Albumin (3.5 - 5.0 g/dL) 3.2 L Hematology CBC w Diff MAN DIFF ORDERED WBC (4.8 - 10.8 /CUMM) 2.2 L RBC (4.20 - 5.40 /CUMM) 4.02 L Hgb (12.0 - 16.0 G/DL) 14.2 Hct (37 - 47 %) 41.5 MCV (81.0 - 99.0 FL) 103.3 H MCH (27.0 - 31.0 PG) 35.3 H MCHC (33.0 - 37.0 G/DL) 34.2 RDW (11.5 - 14.5 %) 13.6 Plt Count (130 - 400 /CUMM) 41 L MPV (7.4 - 10.4 FL) 8.4 Gran % (42.2 - 75.2 %) 72.7 Lymphocytes % (20.5 - 51.1 %) 20.5 Monocytes % (1.7 - 9.3 %) 5.4 Eosinophils % (0 - 5 %) 1.4 Basophils % (0.0 - 2.0 %) 0 Absolute Granulocytes (1.4 - 6.5 /CUMM) 1.6 Segmented Neutrophils (42.2 - 75.2 %) 68 Band Neutrophils (0.0 - 5.0 %) 5 Absolute Lymphocytes (1.2 - 3.4 /CUMM) 0.4 L Lymphocytes (20.5 - 51.1 %) 18 L Monocytes (1.7 - 9.3 %) 6 Absolute Monocytes (0.10 - 0.60 /CUMM) 0.1 Eosinophils (0 - 5.0 %) 3 Absolute Eosinophils (0.0 - 0.7 /CUMM) 0 Absolute Basophils (0.0 - 0.2 /CUMM) 0 Platelet Estimate (ADEQUATE) DECREASED Polychromasia 1+ Macrocytic Cells 1+ Stomatocytes 2+ Urines Urinalysis LIGHT H Urine Color (YEL,AMB,STR) YEL Urine Clarity (CLEAR) HAZY H Urine pH (5.0 - 8.0) 7.5 Ur Specific [place] (1.001 - 1.035) 1.015 Urine Protein (NEG,<30 MG/DL) NEG Urine Ketones (NEG) NEG Urine Nitrite (NEG) NEG Urine Bilirubin (NEG) POS@ICTO H Urine Urobilinogen (0.1 - 1.0 EU/dl) 2.0 H Ur Leukocyte Esterase (NEG) SMALL H Ur Microscopic SEDIMENT EXAMINED Urine RBC (0 - 5 /HPF) 3-5 Urine WBC (0 - 2 /HPF) 5-10 H Ur Epithelial Cells (NONE,FEW) MOD H Urine Bacteria (NEG/NONE) MOD H Urine Hemoglobin (NEG) TRACE-INTACT Urine Glucose (N MG/DL) NEG 05/12 0740 Chemistry Sodium (137 - 145 mmol/L) 136 L Potassium (3.5 - 5.1 mmol/L) 3.7 Chloride (98 - 107 mmol/L) 102 Carbon Dioxide (22 - 30 mmol/L) 26 Anion Gap (5 - 16) 8 BUN (7 - 17 mg/dL) 4 L Creatinine (0.5 - 1.0 mg/dL) 0.5 Estimated GFR (>60 ml/min) > 60 BUN/Creatinine Ratio (7 - 25 %) 8.0 Phosphorus (2.5 - 4.5 mg/dL) 3.8 Magnesium (1.6 - 2.3 mg/dL) 1.3 L Total Bilirubin (0.2 - 1.3 mg/dL) 2.9 H Direct Bilirubin (< 0.4 mg/dL) 2.0 H AST (14 - 36 U/L) 189 H ALT (9 - 52 U/L) 87 H Alkaline Phosphatase (<127 U/L) 287 H Total Protein (6.3 - 8.2 g/dL) 6.0 L Albumin (3.5 - 5.0 g/dL) 3.0 L Hematology CBC w Diff NO MAN DIFF REQ WBC (4.8 - 10.8 /CUMM) 2.1 L RBC (4.20 - 5.40 /CUMM) 3.77 L Hgb (12.0 - 16.0 G/DL) 13.5 Hct (37 - 47 %) 39.0 MCV (81.0 - 99.0 FL) 103.4 H MCH (27.0 - 31.0 PG) 35.8 H MCHC (33.0 - 37.0 G/DL) 34.7 RDW (11.5 - 14.5 %) 14.1 Plt Count (130 - 400 /CUMM) 37 L MPV (7.4 - 10.4 FL) 8.4 Gran % (42.2 - 75.2 %) 70.3 Lymphocytes % (20.5 - 51.1 %) 22.0 Monocytes % (1.7 - 9.3 %) 5.6 Eosinophils % (0 - 5 %) 1.3 Basophils % (0.0 - 2.0 %) 0.8 Absolute Granulocytes (1.4 - 6.5 /CUMM) 1.4 Absolute Lymphocytes (1.2 - 3.4 /CUMM) 0.5 L Absolute Monocytes (0.10 - 0.60 /CUMM) 0.1 Absolute Eosinophils (0.0 - 0.7 /CUMM) 0 Absolute Basophils (0.0 - 0.2 /CUMM) 0 Assessment/Plan Assessment: 43 YOF with a PMH of anxiety, depression, and alcohol abuse on hospital day 4 of ethanol detoxification. Problem 1: Alcohol Abuse - Stop regular Ativan after this evening's dose - Continue to monitor on CIWA - Plan to discharge to care of [facility] on Tuesday or Tuesday - Patient is motivated to stop drinking and will likely find at least temporary success. Problem 2: Anxiety/Depression - Continue Abilify, Zolosft, and Gabapentin - She would likely benefit from regular counseling for Anxiety/Depression Problem 3: UTI - Complete current course of Ciprofloxacin Problem 4: Cytopenias The laboratory data for these are mostly consistent with what is expected during alcohol abuse and detoxification with one exeption: the leukopenia is normally a granulocytopenia, and rising lymphocytes are expected within one week of detox. Instead we have seen a worsening lymphocytopenia. Patient nutrition in hospital has been good, so the significance and etiology of this finding is not known, but may warrent follow-up assessment of lymphocyte subpopulations after the patient is rehabilitated. Problem 5: Smoking - Patient smokes because it helps her relax, and is not very interested in quitting - Lay Midwife patient regarding risks of smoking and benefits to quitting
[2018-05-15] VITALS (7 sets, daily range): BP systolic 90–126; BP diastolic 44–70
--- NOTE | 2018-05-15 07:15 | PN- Housestaff ---
See Addendum Subjective Follow-up For: alcohol use disorder UTI Subjective: dysuria is resolved patient does report getting headaches and body aches that are controlled with tylenol afebrile overnight Review of Systems Constitutional: Reports: see HPI. Objective Last 24 Hrs of Vital Signs/I&O Vital Signs Date Time Temp Pulse Resp B/P B/P Pulse O2 O2 Flow FiO2 Mean Ox Delivery Rate 05/15 1016 98.6 80 20 126/70 94 Room Air 05/15 0616 98.2 90 20 104/64 95 Room Air 05/15 0600 98.6 90 20 90/44 05/15 0355 98.6 90 20 90/54 05/15 0248 98.6 90 20 90/54 96 Room Air 05/15 0200 98.6 90 20 /54 05/14 2254 98.2 05/14 2200 99.4 93 18 114/72 95 Room Air 05/14 1817 98.1 109 20 110/80 95 Room Air 05/14 1422 98.5 85 20 116/84 94 Room Air 05/14 1400 98.4 94 20 100/60 Intake & Output 05/15 1600 05/15 0800 05/15 0000 Intake Total 500 2000 Output Total 650 1000 Balance -150 1000 Intake, Oral 500 2000 Output, Urine 650 1000 Physical Exam General Appearance: Alert, Oriented X3, Cooperative, No Acute Distress Cardiovascular: Regular Rate, Normal S1, Normal S2, No Murmurs Lungs: Clear to Auscultation, Normal Air Movement Abdomen: Normal Bowel Sounds, Soft, No Tenderness, No Masses Extremities: No Clubbing, No Cyanosis, No Edema, Normal Pulses Current Medications: Current Medications Sig/Fareed Start time Last Medication Dose Route Stop Time Status Admin Acetaminophen 500 MG Q6P PRN 05/11 1045 AC 05/15 PO 0258 Albuterol Sulfate 2 PUF BID 05/12 2100 AC INH Aripiprazole 5 MG DAILY 05/11 900 AC 05/15 PO 0902 Ciprofloxacin 500 MG BID 05/13 1230 DC 05/14 PO 05/17 1229 2023 Folic Acid 1 MG DAILY 05/11 09 AC 05/15 PO 0902 Gabapentin 1,200 MG BID 05/11 1455 AC 05/15 PO 0901 Lorazepam 1 MG Q12 05/14 2100 AC 05/15 PO 0903 Lorazepam 0 Q1P PRN 05/11 0500 AC 05/13 IV 1807 Magnesium Oxide 400 MG DAILY 05/15 09 AC 05/15 PO 0902 Magnesium Oxide 800 MG ONE ONE 05/14 1200 DC 05/14 PO 05/14 1201 1252 Multivitamins 1 TAB DAILY 05/11 09 AC 05/15 PO 0902 Nicotine 14 MG DAILY 05/10 2045 05/15 TOP 0901 Nitrofurantoin 100 MG BID 05/15 900 AC 05/15 PO 0902 Nitrofurantoin 50 MG Q6 05/15 0725 DC PO Patient Medication 1 ED ONE ONE 05/15 0915 DC Teaching ED 05/15 0916 Sertraline HCl 200 MG DAILY 05/11 1455 05/15 PO 0903 Thiamine HCl 50 MG DAILY 05/11 900 AC 05/15 PO 09 Last 24 Hrs of Lab/Vishal Results Last 24 Hrs of Labs/Mics: Laboratory Tests 05/15/18 0755: Anion Gap 9, Estimated GFR > 60, BUN/Creatinine Ratio 14.0, Magnesium 2.0, Total Bilirubin 2.5 H, Direct Bilirubin 1.7 H, AST 158 H, ALT 96 H, Alkaline Phosphatase 234 H, Creatine Kinase 308 H, Total Protein 6.2 L, Albumin 3.2 L , CBC w Diff NO MAN DIFF REQ, RBC 3.92 L, MCV 103.9 H, MCH 35.8 H, MCHC 34.4, RDW 14.1, MPV 8.9, Gran % 68.9, Lymphocytes % 21.4, Monocytes % 7.9, Eosinophils % 1.8, Basophils % 0, Absolute Granulocytes 1.6, Absolute Lymphocytes 0.5 L, Absolute Monocytes 0.2, Absolute Eosinophils 0, Absolute Basophils 0 Assessment/Plan Assessment: 43 year old female with a PMH significant for anxiety, depression, alcohol use disorder, withdrawal seizures last 08/2012 sent in by [facility] for alcohol detox. Last drink was 05/10/18 5 PM. EtOH dependence and withdrawal: Ativan taper completed Continue multivitamin, thiamine, folate Abdominal ultrasound negative for biliary disease, hepatic steatosis Thrombocytopenia and leukopenia likely secondary to EtOH CK 300, no need for IVFs, for myalgias Stable for discharge to [facility] inpatient rehabilitation for alcohol use disorder Anxiety/depression: Continue abilify, zoloft, and gabapentin Cystitis: ESBL Ecoli on urine culture with multidrug resistance Antibiotics changed from ciprofloxacin to nitrofurantoin 100mg po bid x 7 days Continue nicotine patch Regular diet DVT ppx-ALPS only-thrombocytopenia Full code Stable for discharge to [facility] with one week course of Macrobid for UTI with ESBL E. coli. Problem List: 1. EtOH dependence 2. Alcohol withdrawal Pain Ratin Pain Location: whole body myalgias Pain Goal: Pain 4 or less Pain Plan: prn Tomorrow's Labs & Rationales: none
--- NOTE | 2018-05-15 08:22 | Patient Discharge Instructions ---
Discharge Instructions General Discharge Information You were seen/treated for: alcohol withdrawal Special Instructions: please follow up with your PCP upon discharge. Please ct to take your medications as prescribed. Acute Coronary Syndrome Inclusion Criteria At DC or during hospital stay patient has or had the following: ACS DIAGNOSIS No Discharge Core Measures Meds if any: Prescribed or Continued at Discharge Meds if any: NOT Prescribed or Continued at Discharge Congestive Heart Failure Inclusion Criteria At DC or during hospital stay patient has or had the following: CHF DIAGNOSIS No Discharge Core Measures Meds if any: Prescribed or Continued at Discharge Meds if any: NOT Prescribed or Continued at Discharge Cerebrovascular accident Inclusion Criteria At DC or during hospital stay patient has or had the following: CVA/TIA Diagnosis No Discharge Core Measures Meds if any: Prescribed or Continued at Discharge Meds if any: NOT Prescribed or Continued at Discharge Venous thromboembolism Inclusion Criteria VTE Diagnosis No VTE Type NONE VTE Confirmed by (Test) NONE Discharge Core Measures - Per Current guidelines, there needs to be overlap - treatment for the first 5 days of Warfarin therapy. - If discharged on Warfarin prior to 5 days of - overlap therapy, the patient will need to be - assessed for post discharge needs including - *Post discharge parental anticoagulation - *Warfarin and/or parental anticoagulation education - *Follow up date to check INR post discharge At least 5 days overlap therapy as Inpatient No Meds if any: Prescribed or Continued at Discharge Note: Overlap Therapy is Warfarin and Anticoagulant Meds if any: NOT Prescribed or Continued at Discharge
[2018-05-15] MEDS ORDERED: MACROBID 100 M100 MG PO ×2 (08:23→08:57)
--- NOTE | 2018-05-15 08:58 | Discharge Summary ---
Visit Information Visit Dates Admission Date: 05/11/18 Discharge Date: 05/15/18 Hospital Course Course Attending Physician: Melquiades Paz MD Primary Care Physician: Patient Has No Primary Care Dr Hospital Course: 43 year old female with a past medical history significant for anxiety, depression, alcohol use disorder, and withdrawal seizures was sent in to the emergency department from [facility] for alcohol detoxification. Her last drink was 05/10/18 5 PM. She was started on ativan taper for withdrawal and given prn doses according to the CIWA monitor scale for withdrawal. Her alcohol detox was unremarkable. Hospital course was complicated by low grade fever of 100.3 and complaints of dysuria. Urinalysis was consistent with infection and she was started on ciprofloxacin. Final urine culture grew multidrug resistance ESBL E. Coli and antibiotics were changed to macrobid 100mg po bid x 1 week course. Labs were notable for leukopenia, thrombocytopenia, hyperbilirubinemia and transaminitis, all likely related to chronic alcohol use. She was given supplemental vitamins. A right upper quadrant ultrasound was negative for biliary disease but did show hepatic steatosis. Her zoloft, abilify, and gabapentin were continued. She was discharged planning to go to [facility] but this complicated by her ESBL urinary tract infection. She was following up with social work to find alternative aftercare plans for sobriety. Allergies: Coded Allergies: No Known Allergies (05/10/18) Disposition Summary Disposition Principal Diagnosis: Alcohol use disorder Alcohol dependence and withdrawal Cystitis from ESBL E. Coli Hyperbilirubinemia Transaminitis Leukopenia Thrombocytopenia Additional Diagnosis: Anxiety Depression History of alcohol withdrawal seizures Discharge Disposition: home or self care Discharge Instructions General Discharge Information Code Status: Full Code Patient's Diet: Regular diet Patient's Activity: As tolerated Follow-Up Instructions/Appts: Please follow up with your primary care physician and aftercare treatment plan for sobriety from alcohol Medications at Discharge Discharge Medications: Continue taking these medications: Sertraline HCl (Sertraline HCl) 100 MG TABLET 2 Tablet ORAL DAILY Qty = 180 Comments: LAST TAKEN: 05/15/18 @ 9 AM Gabapentin (Gabapentin) 600 MG TABLET 2 Tablet ORAL THREE TIMES DAILY Qty = 180 Comments: LAST TAKEN: 05/15/18 @ 9 AM Aripiprazole (Aripiprazole) 5 MG TABLET 1 Tablet ORAL DAILY Qty = 30 Comments: LAST TAKEN: 05/15/18 @ 9AM Multivitamin (Daily Value) 1 EACH TABLET 1 Tablet ORAL DAILY Comments: LAST TAKEN: 05/15/18 @ 9 AM Start taking the following new medications: Nitrofurantoin Monohyd/M-Cryst (Macrobid 100 MG Capsule) 100 MG CAPSULE 1 Capsule ORAL TWICE DAILY Qty = 14 No Refills Comments: LAST TAKEN: 05/15/18 @ 9 AM Copies To: Jd SOUSA,Jd Attending Review Statement Documenting Attending: Melquiades Paz MD Other Findings: Discharged in stable condition.
[2018-05-15 09:04] LABS: ABSOLUTE BASOPHIL COUNT 0 /CUMM (0.0-0.2); ABSOLUTE EOSINOPHIL COUNT 0 /CUMM (0.0-0.7); ABSOLUTE LYMPH COUNT 0.5 /CUMM (1.2-3.4); ABSOLUTE MONOCYTE COUNT 0.2 /CUMM (0.10-0.60); WHITE BLOOD CELL COUNT 2.3 /CUMM (4.8-10.8)
[2018-05-15 09:43] LABS: ABSOLUTE GRANULOCYTE CT 1.6 /CUMM (1.4-6.5); BASOPHIL % 0 % (0.0-2.0); EOSINOPHIL % 1.8 % (0-5); GRANULOCYTE % 68.9 % (42.2-75.2); HEMATOCRIT 40.7 % (37-47); MEAN CORPUSCULAR HGB 35.8 PG (27.0-31.0); MEAN CORPUSCULAR HGB CONC 34.4 G/DL (33.0-37.0); MEAN CORPUSCULAR VOLUME 103.9 FL (81.0-99.0); MEAN PLATELET VOLUME 8.9 FL (7.4-10.4); RBC DISTRIBUTION WIDTH 14.1 % (11.5-14.5); RED BLOOD CELL CT 3.92 /CUMM (4.20-5.40)
[2018-05-15 10:00] LABS: PLATELET COUNT 51 /CUMM (130-400)
== END 2018-05-15 13:00 | DRG 897 ==
LOC: ERH 18:36 → 2NA 05-11 04:14 → ERHI 05-11 04:14 → ENRESERV 05-11 12:25 → 2NA 05-11 14:02
PROVIDERS: Emergency Medicine; Internal Medicine; Physician Assistant Medical; Preventive Medicine Public Health & General Preventive Medicine
DX: F10.239 Alcohol dependence with withdrawal, unspecified (principal); N39.0 Urinary tract infection, site not specified; R74.0 Nonspecific elevation of levels of transaminase and lactic acid dehydrogenase [LDH]; D69.6 Thrombocytopenia, unspecified; F41.9 Anxiety disorder, unspecified; F32.9 Major depressive disorder, single episode, unspecified; F17.210 Nicotine dependence, cigarettes, uncomplicated; R30.0 Dysuria; B96.20 Unspecified Escherichia coli [E. coli] as the cause of diseases classified elsewhere
CPT/HCPCS: 2NAP; 36415; 36592; 71045; 80307; 81001; 82436; 87040; 87086; 96374; G0480; J3101; J3490